=== PATIENT | female | born 1965 | race Two or more races ===

== ENCOUNTER 2020-06-17 06:34 | Day surgery (SDC) | payer MEDICAID ==
--- NOTE | 2020-06-14 10:28 | Opthalmology H&P ---
Ophthalmology H&P H&P Chief Complaint: decreased vision in right eye HPI Vision Affects Ability to: read, manage personal affairs HPI Narrative Blurry vision Exam Visual Acuity: OD 20/100 OS 20/80 Tension: OD 10 OS 12 Eye Exam: normal OU: palpebral fissure-width, marginal reflex distance, levator function, corneas, anterior chambers, fundus exam; findings: external exam - Pterygium OU, lens - NS Cataracts OU Assessment/Plan Treatment Plan: cataract extraction w/ lens implant Goals of Treatment: improvement of vision, enhance quality of life Attestation Attestation The risks and benefits of the surgery as well as alternative procedures were explained to the patient in detail. Bimal Cruz MD Jun 14, 2020 10:28
--- NOTE | 2020-06-14 10:32 | Pre-Procedure Note/Attestation ---
Pre-Procedure Note/Attestation Complete Prior to Procedure Planned Procedure: right Procedure Narrative: Cataract extraction with intraocular lens implant right eye Indications for Procedure Pre-Operative Diagnosis: Nuclear sclerotic cataract right eye Attestation I attest that I discussed the nature of the procedure; its benefits; risks and complications; and alternatives (and the risks and benefits of such alternatives ), prior to the procedure, with the patient (or the patient's legal bank representative). I attest that, if there was a reasonable possibility of needing a blood transfusion, the patient (or the patient's legal bank representative) was given the [facility] standardized written summary, pursuant to the [place] D[place] Blood Safety Act ([place] Health and Safety Code # 1645, as amended). I attest that I re-evaluated the patient just prior to the surgery and that there has been no change in the patient's H&P, except as documented below: Bimal Cruz MD Jun 14, 2020 10:32
[2020-06-17] VITALS (8 sets, daily range): BP systolic 123–145; BP diastolic 70–85
[~2020-06-17] VITALS: Ht 152.4 cm; Wt 68.5 kg
[~2020-06-17 06:34] MED LIST: HUMALOG100 UNIT/4 SUBQ; METFORMIN HCL1000 M1 ORAL; atorvastatin PO
[2020-06-17] MEDS ORDERED: Akten 3.5% 1ml Btl RIGHT EYE ONE (07:00)
[2020-06-17] MEDS ORDERED: Tetracaine 0.5% Opth 4ml Soln RIGHT EYE ONE (07:00)
[2020-06-17] MEDS ORDERED: Proparacaine 0.5% Opth Soln 15ml RIGHT EYE ONE (07:00)
[2020-06-17] MEDS: Phenylephrine 10% Opth Soln 5ml RIGHT EYE SCH ×3 (07:08→07:22)
[2020-06-17] MEDS: Tobramycin Op Soln 0.3% 5ml RIGHT EYE SCH ×3 (07:08→07:23)
[2020-06-17] MEDS: Cyclopentolate 1% Opth Sol 2ml RIGHT EYE SCH ×3 (07:08→07:22)
[2020-06-17] MEDS: Tropicamide 1% Opth 15ml Soln RIGHT EYE SCH ×3 (07:08→07:22)
[2020-06-17] MEDS: Diclofenac Sod 0.1% Op Soln RIGHT EYE SCH ×3 (07:09→07:23)
[2020-06-17] MEDS ORDERED: Sodium Hyaluronate 10 mg/ml 0.85ml ONE (07:14)
[2020-06-17] MEDS ORDERED: Povidone-Iodine 5% opth solution ONE (07:14)
[2020-06-17] MEDS ORDERED: EPINEPHrine 1mg/1ml Amp ONE (07:14)
[2020-06-17] MEDS ORDERED: BSS 500ml btl ONE (07:14)
[2020-06-17] MEDS ORDERED: BSS 15ml BTL ONE (07:14)
[2020-06-17] MEDS ORDERED: LR 1000ml 1,000 ML IVLG SCH (08:08)
--- NOTE | 2020-06-17 08:12 | Anethesia Preoperative Eval ---
Anesthesia Pre-op PMH/ROS General Date of Evaluation: Jun 17, 2020 Time of Evaluation: 08:52 Anesthesiologist: Anel ASA Score: ASA 3 Mallampati Score Class I : Soft palate, uvula, fauces, pillars visible Class II: Soft palate, uvula, fauces visible Class III: Soft palate, base of uvula visible Class IV: Only hard plate visible Mallampati Classification: Class II Surgeon: Nancy Diagnosis: Cataract OD Surgical Procedure: Cat Ext IOL OD Anesthesia History: none Family History: no anesthesia problems Allergies: Coded Allergies: No Known Allergies (Unverified , 06/13/20) Medications: see eMAR Patient NPO?: Yes Past Medical History Cardiovascular: Reports: HTN, other - HL Endocrine: Reports: DM Musculoskeletal/Integumentary: Reports: OA Other: obesity - BMI 31 PSxH Narrative: ZOILA, Finger SX Anesthesia Pre-op Phys. Exam Physician Exam Last Vital Signs Date Time Temp Pulse Resp B/P (MAP) Pulse Ox O2 Delivery O2 Flow Rate FiO2 06/17/20 07:20 Room Air 06/17/20 07:09 97.5 83 18 123/70 99 Constitutional: NAD Neurologic: CN 2-12 intact Cardiovascular: RRR Respiratory: CTA Gastrointestinal: S/NT/ND Airway Exam Mallampati Score: Class II MO: limited ROM: limited Teeth: missing Anesthesia Pre-op A/P Risk Assessment & Plan Assessment: ASA 3 Plan: TIVA Status Change Before Surgery: No Ravinder Tam MD Jun 17, 2020 08:12
[2020-06-17] MEDS ORDERED: HYDROcodone/Acetamin 5/325 tab ORAL PRN (08:15)
[2020-06-17] MEDS ORDERED: LORazepam Inj 2mg/ml 1ml IV PRN (08:15)
[2020-06-17] MEDS ORDERED: oxyCODONE HCL/Acetaminophen 5/325mg ORAL PRN (08:15)
[2020-06-17] MEDS ORDERED: Metoclopramide 10mg/2ml Inj IVP PRN (08:15)
[2020-06-17] MEDS ORDERED: Ketorolac 30mg Inj IV PRN ×2 (08:15)
[2020-06-17] MEDS ORDERED: DiphenhydrAMINE 50mg/ml Inj IVP PRN (08:15)
[2020-06-17] MEDS ORDERED: Atropine Sulfate 0.4mg/ml inj IVP PRN (08:15)
[2020-06-17] MEDS ORDERED: Labetalol 5mg/ml 20ml vial IV PRN (08:15)
[2020-06-17] MEDS ORDERED: Hydromorphone 0.5mg/0.5ml inj IVP PRN (08:15)
[2020-06-17] MEDS ORDERED: Meperidine 25mg/0.5ml Inj (FOR RIGORS ONLY) IV PRN (08:15)
[2020-06-17] MEDS ORDERED: fentaNYL 100 mcg/2 mL IV PRN (08:15)
[2020-06-17] MEDS ORDERED: Midazolam 2mg/2ml Inj IVP PRN (08:15)
[2020-06-17] MEDS ORDERED: HYDROcodone/Acetamin 7.5/325 tab ORAL PRN (08:15)
[2020-06-17] MEDS ORDERED: Pilocarpine 1% Opth 15ml Soln ONE (09:00)
[2020-06-17] MEDS ORDERED: prednisoLONE acetate 1% Opth Susp 1ml ONE (09:00)
[2020-06-17] MEDS ORDERED: Lidocaine 1% MPF 10mg/ml 5ml ONE (09:00)
[2020-06-17] MEDS ORDERED: Maxitrol Opth Oint 3.5gm ONE (09:00)
[2020-06-17] MEDS ORDERED: NS Irrig 1000ml ONE (09:00)
[2020-06-17] MEDS ORDERED: LR 1000ml ONE (09:00)
[2020-06-17] MEDS ORDERED: Sterile Water Irrig 1000ml IRRIG ONE (09:00)
--- NOTE | 2020-06-17 09:01 | Immediate Post-Op Evaluation ---
Immediate Post-Op Evalulation Immediate Post-Op Evalulation Procedure: Cat Ext IOL OD Date of Evaluation: Jun 17, 2020 Time of Evaluation: 09:59 IV Fluids: 1000 LR Blood Products: 0 Estimated Blood Loss: 1 Urinary Output: 0 Blood Pressure Systolic: 151 Blood Pressure Diastolic: 72 Pulse Rate: 82 Respiratory Rate: 16 O2 Sat by Pulse Oximetry: 100 Temperature (Fahrenheit): 97.8 Pain Score (1-10): 1 Nausea: No Vomiting: No Complications 0 Patient Status: awake, reacts, patent, none Hydration Status: adequate Ravinder aTm MD Jun 17, 2020 09:01
--- NOTE | 2020-06-17 09:02 | 48 Hour Post Anesthesia Eval ---
Post Anesthesia Evaluation Procedure: Cat Ext IOL OD Date of Evaluation: Jun 17, 2020 Time of Evaluation: 12:11 Blood Pressure Systolic: 148 0: 78 Pulse Rate: 79 Respiratory Rate: 18 Temperature (Fahrenheit): 98.2 O2 Sat by Pulse Oximetry: 100 Airway: patent Nausea: No Vomiting: No Pain Intensity: 1 Hydration Status: adequate Cardiopulmonary Status: Stable Mental Status/LOC: patient returned to baseline Follow-up Care/Observations: 0 Post-Anesthesia Complications: 0 Follow-up care needed: ready to discharge Ravinder Tam MD Jun 17, 2020 09:02
[2020-06-17] MEDS ORDERED: Carbachol 0.01% Op Soln 1.5ml vial ONE (09:49)
--- NOTE | 2020-06-17 15:51 | Brief Operative Note ---
Immediate Post Operative Note Operative Note Chief Complaint: Blurry vision Pre-op Diagnosis: Nuclear sclerotic cataract right eye Procedure: Cataract extraction with IOL implant right eye Post-op Diagnosis: Pseudophakia OD Findings: consistent w/pre-op dx studies Surgeon: Bimal Cruz MD Anesthesiologist: Ravinder Tam MD Anesthesia: MAC Specimen: none Complications: none Condition: stable Fluids: LR Estimated Blood Loss: none Drains: none Implant(s) used?: Yes - IOL-OD Bimal Cruz MD Jun 17, 2020 15:51
--- NOTE | 2020-06-17 16:25 | Operative Note - PDOC ---
Operative Note Operative Note Date of Operation/Procedure: Jun 17, 2020 Chief Complaint: Blurry vision Pre-op Diagnosis: Nuclear sclerotic cataract right eye Procedure: Cataract extraction with IOL implant right eye Post-op Diagnosis: Pseudophakia OD Operative Findings: consistent w/pre-op dx studies Surgeon: Bimal Cruz MD Anesthesiologist: Ravinder Tam MD Anesthesia: MAC Specimen: none Complications: none Condition: stable Fluids: LR Estimated Blood Loss: none Drains: none Implant(s) used?: Yes - IOL-OD Indications for Procedure Nuclear sclerotic cataract right eye Description of Procedure This patient has been complaining visually significant cataract in the right eye with the best corrected visual acuity of 20/100 under moderate glare conditions worse. The patient complains of difficulties with glare in performing activities of daily living and wants to manage personal affairs with comfort and accuracy and see well enough to move with safety at home and outdoors. The risks, benefits and alternatives of the procedure were discussed with the patient in the office prior to scheduling surgery. All questions from the patient were answered after the surgical procedure was explained in detail. The risks of the procedure as explained to the patient include, but are not limited to, pain, infection, bleeding, loss of vision, retinal detachment, need for further surgery, loss of lens nucleus, double vision, etc. Alternative procedures were discussed which include, to do nothing or seek a second opinion. Informed consent for this procedure was obtained from the patient. The patient was referred to a primary care physician for a cardiopulmonary clearance prior to surgery, after proper evaluation was done patient was properly scheduled for outpatient surgery. The patient was brought to the operating room where the anesthesiologist established I.V. lines and cardiac monitoring leads. Mild intravenous sedation was administered. The patient was then prepared with a 5% solution of povidone -iodine to the conjunctival fornix and lashes, and a 5% solution of povidone- iodine to the lids and periorbital skin. The patient was then draped in the usual sterile fashion. A lid speculum was then placed in the operative eye. A keratome blade was then used to create a biplanar incision into the anterior chamber. [employer]coelastics was then instilled into the anterior chamber. A capsulorrhexis was then fashioned with an utrata forceps followed by hydrodissection and hydro delineation of the lens nucleus. Paracentesis incision was made at 3 o'clock with sharp blade. The phacoemulsification unit, after being properly adjusted and tested, was then used to emulsify the nucleus. An area of loose zonules were identified during the process of aspiration of cortex a small amount of cortex was noted to go into the posterior chamber however, the implant was able to be placed in the sulcus without difficulty.there might be a need for a second procedure in the future but this will be evaluated postoperatively. Viscoelastics was removed from the anterior chamber using the irrigation and aspiration unit. The corneal wound was then tested for leaks and none were found. The lid speculum were then removed. Sponge and needle counts were correct. An eye patch and shield were placed over the operative eye. The patient was taken to the recovery room in stable condition. There were no complications. The patient tolerated the procedure well. The patient was then transferred to the ambulatory surgery unit in stable and satisfactory condition , was given detailed written instructions and asked to follow up in the office the next day. Bimal Cruz MD Jun 17, 2020 16:25
== END 2020-06-17 11:00 | disposition home or self-care (01) ==
LOC: SUR 06:34
DX: H25.11 Age-related nuclear cataract, right eye (principal); I10 Essential (primary) hypertension; E11.9 Type 2 diabetes mellitus without complications; M19.90 Unspecified osteoarthritis, unspecified site; E66.9 Obesity, unspecified; Z68.29 Body mass index [BMI] 29.0-29.9, adult
CPT/HCPCS: 66984; 82962; 94003; J0171; J1100; J1885; J2704; J3370; J7120; V2632; Z7512; 94150